=== PATIENT | male | born 1960 | race Caucasian/White ===

== ENCOUNTER 2017-06-05 03:26 | Emergency (ER) | payer MEDICAID ==
[~2017-06-05] VITALS: Ht 172.7 cm; Wt 72.6 kg
[2017-06-05 03:26] VITALS: BP 165/90
--- NOTE | 2017-06-05 03:39 | NUR ---
PT [facility] TO ER. PER REPORT, PT WENT TO [facility] CLAIMING HE GOT SHOT. NO OBVIOUS TRAUMA NOTED. 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 C/O GENERALIZED BODY ACHES. AWAITING MD STORY.
--- NOTE | 2017-06-05 04:09 | NUR ---
PT SEEN BY ANDREI. AMBULATORY W/ STEADY GAIT. REQUESTED TO STAY IN ER WAITING ROOM STATING "ITS TOO COLD OUTSIDE." D/C IN STABLE CONDITION.
== END 2017-06-05 04:13 | disposition home or self-care (01) ==
LOC: ER 03:31
DX: F10.129 Alcohol abuse with intoxication, unspecified (principal)
CPT/HCPCS: 99283; A4606; Z7610

== ENCOUNTER 2017-06-06 11:54 | Emergency (ER) | payer MEDICAID ==
[~2017-06-06] VITALS: Ht 170.2 cm; Wt 68.0 kg
--- NOTE | 2017-06-06 12:08 | NUR ---
BLOOD AND URINE SAMPLE SENT TO LAB
[2017-06-06 12:21] LABS: BASOPHILS # (AUTO) 0.1 /CMM (0.0-0.2); EOSINOPHILS % (AUTO) 0.5 % (0.0-6.0); HEMATOCRIT 35 % (39-51); HEMOGLOBIN 11.9 g/dL (13.5-17.5); LYMPHOCYTES % (AUTO) 14.6 % (20.0-44.0); MEAN CORPUSCULAR HEMOGLOBIN 31 PG (26.0-33.0); MEAN CORPUSCULAR HGB CONC 34 g/dl (31.0-36.0); MEAN CORPUSCULAR VOLUME 93 fL (80-96); MONOCYTES # (AUTO) 0.6 /CMM (0.1-1.30); MONOCYTES % (AUTO) 9.8 % (2.0-12.0); NEUTROPHILS # (AUTO) 4.9 /CMM (1.8-8.9); NEUTROPHILS % (AUTO) 74.1 % (43.0-81.0); PLATELET COUNT (AUTO) 152 /CMM (150-450); RDW COEFFICIENT OF VARIATION 15.5 (11.5-15.0); RED BLOOD CELL COUNT(AUTO) 3.82 MIL/uL (4.5-6.0); WHITE BLOOD COUNT (AUTO) 6.6 K/uL (4.3-11.0)
[2017-06-06 12:21] LABS: APPEARANCE,URINE CLEAR (CLEAR); BILIRUBIN,URINE 1+ (NEGATIVE); BLOOD, URINE NEGATIVE Ery/uL (NEGATIVE); COLOR,URINE YELLOW (YELLOW); KETONES,URINE 1+ (NEGATIVE); LEUKOCYTE ESTERASE ,URINE NEGATIVE (NEGATIVE); NITRITE, URINE NEGATIVE (NEGATIVE); PROTEIN,URINE NEGATIVE (NEGATIVE); UGLUCOSE NEGATIVE (NEGATIVE); UROBILINOGEN,URINE 0.2 EU/dL (0.2)
[2017-06-06 12:26] LABS: BACTERIA,URINE None seen /HPF (None Seen); RBC,URINE NONE SEEN /HPF (0-2); SQUAMOUS EPITHELIAL CELL,UR Few /HPF (None Seen); WBC,URINE NONE SEEN /HPF (0-3)
[2017-06-06 12:43] LABS: ALANINE AMINOTRANSFERASE 45 U/L (12-78); ALBUMIN 3.8 g/dL (3.4-5.0); ALCOHOL, BLOOD < 3 mg/dL (0-0); ALKALINE PHOSPHATASE 81 U/L (46-116); ASPARTATE AMINOTRANSFERASE 36 U/L (15-37); BILIRUBIN,DIRECT 0.2 mg/dL (0.0-0.2); BILIRUBIN,TOTAL 0.8 mg/dL (0.2-1.0); CALCIUM, SERUM 8.7 mg/dL (8.5-10.1); CARBON DIOXIDE 25 mmol/L (21-32); CHLORIDE 99 mmol/L (98-107); CREATININE 0.9 mg/dL (0.6-1.3); GLUCOSE 146 mg/dL (74-106); POTASSIUM 3.5 mmol/L (3.5-5.1); SODIUM SERUM 138 mmol/L (136-145); TOTAL PROTEIN, SERUM 8.8 g/dL (6.4-8.2); UREA NITROGEN, BLOOD 10 mg/dL (7-18)
[2017-06-06 12:47] LABS: ACETAMINOPHEN 0 ug/ml (10-30); SALICYLATE 0.6 mg/dL (2.8-20.0)
== END 2017-06-06 13:21 | disposition home or self-care (01) ==
LOC: ER 11:56
DX: F29 Unspecified psychosis not due to a substance or known physiological condition (principal); Z86.19 Personal history of other infectious and parasitic diseases; Z60.2 Problems related to living alone
CPT/HCPCS: 36415; 80048; 80076; 80305; 80329; 81001; 85025; 99284; G0480 ×2; 81000-TC